=== PATIENT | male | born 1980 | race Caucasian/White ===

== ENCOUNTER 2017-04-01 01:33 | Emergency (ER) | payer OTHER ==
[~2017-04-01] VITALS: Ht 172.7 cm; Wt 86.2 kg
[~2017-04-01 01:33] MED LIST: ERYTHROMYCIN E3.5 G3 OPHTHALMIC; NOHOMEMEDICATIONS
[2017-04-01] MEDS ORDERED: TRAMADOL 50 MG50 MG PO (03:42)
[2017-04-01 04:23] VITALS: BP 135/93
== END 2017-04-01 04:32 | disposition home or self-care (01) ==
LOC: ER 01:33
DX: S05.02XA Injury of conjunctiva and corneal abrasion without foreign body, left eye, initial encounter (principal); W22.8XXA Striking against or struck by other objects, initial encounter; Y93.89 Activity, other specified; Y92.008 Other place in unspecified non-institutional (private) residence as the place of occurrence of the external cause; Y99.8 Other external cause status